=== PATIENT | male | born 1955 | race Caucasian/White ===

== ENCOUNTER 2021-12-18 13:53 | Inpatient (IN) | payer OTHER ==
[2021-12-18] VITALS (17 sets, daily range): BP systolic 75–135; BP diastolic 49–82
[~2021-12-18] VITALS: Ht 182.9 cm; Wt 84.4 kg
--- NOTE | ~2021-12-18 | EMS ---
[address] [address] EMS Patient Care Report Name: JOHN TEIXEIRA Room #: 247-P ADM IN M.R.#: [id number] Admission: 12/18/21 Attend Phys: Ra Garcia MD Discharge: Date of : 53 Report #: [id number] THIS REPORT FOR: //name// Report Transmitted: 12/18/2021 21:03 EMS Care Summary [facility] MED-ACT Incident [id number] @ 12/18/2021 13:19 Incident Location [address] [place] [address] Patient JOHN TEIXEIRA Male, 66 Years 1955 Patient Address [address] [place] [address] Patient History Pneumonia,Respiratory Failure,Coronary Artery Disease (CAD),Myocardial Infarction (MD),Novel Coronavirus (COVID-19), Patient Allergies No known allergies, Patient Medications Metoprolol, Enoxaparin, Lorazepam, Albuterol, Chief Complaint respiratory distress Disposition Transported No Lights/[place] Dispatch Reason Breathing Problem Transported To [facility] Narrative Dispatched to a rehab hospital for a male pt reported to be having shortness of breath. EMS arrived to find the pt alert, in a semi-fowlers position in bed, [address] [address] EMS Patient Care Report Name: JOHN TEIXEIRA Room #: 247-P ADM IN Art.#: [id number] Admission: 12/18/21 Attend Phys: Ra Garcia MD Discharge: Date of : 53 Report #: [id number] with biPap in place. Staff reports that the pt has been "maxed out" on everything they can do for him oxygen and ventilation goodrich since he arrived about a month prior. They report that he has been having difficulty the whole time but that he has continued to worsen at a steady rate. They report that he has been "de-satting" quickly and that he is getting too sick for them to care for at the moment. Staff requests that EMS "RSI and intubate" the pt then take him to [facility]. EMS explained that while we can intubate, we do not have RSI protocols within our department. EMS also informed them that the pts status and severity of illness prevented us from being able to transport him to the [facility] hospital which is a 22+ mile drive away when there are several other, significantly closer ER's that would be appropriate for stabilizing him. Pt and staff then agreed to the nearest ER, [place]. Pt reports that he wants to be sedated and intubated, though says he has never been intubated before. He says that he would like to stay on the ventilator for up to 30 days, and that he would like to be transferred to [place] if possible once stabilized. Pt is found lifted from the bed to the cot before being placed on CPAP with an O2 trio at 90% fiO2. Pt is secured and moved to the ambulance for transport to [facility]. Pt remains alert, though lethargic, reporting shortness of breath while en route. He does report that the CPAP is helping him breath a little easier during transport. Pt is lifted from the cot to the ER bed in room #6. Care is transferred to waiting RN and MD staff. Initial Vitals @13:44P: 127,SpO2: 67, @13:36P: 119,SpO2: 94, @13:31P: 116,SpO2: 87, @13:40P: 123,BP: 142/90,SpO2: 91, @13:47P: 101,R: 44,EtCO2: 23,SpO2: 85, @13:49P: 94,R: 41,BP: 115/69,EtCO2: 23,SpO2: 85, @13:36P: 97,R: 32,SpO2: 91,MD Suspected: false @PTAP: 116,R: 32,BP: 132/77,Pain: 0/10,GCS: 15,Temp: 97.8F,SpO2: 87,Revised Trauma: 11, @13:51P: 116,R: 41,GCS: 15,EtCO2: 21,SpO2: 88, Impression Respiratory Failure Procedures @13:40 CPAP Response: UnchangedSucceeded @PTAIV Therapy - Saline Lock cc (20 ga) Site: Forearm-Left Response: UnchangedSucceeded @13:32 ALS Assessment Response: UnchangedSucceeded @PTAOxygen FlowRate: 15 Device: Non Re-breather Mask (NRB) Response: [facility] [address] [place] [address] EMS Patient Care Report Name: JOHN TEIXEIRA Room #: 247-P ADM IN M.R.#: [id number] Admission: 12/18/21 Attend Phys: Ra Garcia MD Discharge: Date of : 53 Report #: [id number] UnchangedSucceeded @13:31 12-Lead ECG Response: UnchangedSucceeded @13:36 12-Lead ECG Response: UnchangedSucceeded Timeline CEMENT PAVER,IV Therapy - Saline Lock cc 20 ga Site: Forearm-Left,Response: UnchangedSucceeded, CEMENT PAVER,Oxygen FlowRate: 15 Device: Non Re-breather Mask (NRB) Response: UnchangedSucceeded, CEMENT PAVER,BP: 132/77 M,PULSE: 116,RR: 32 R,SPO2: 87 Ox,ETCO2: ,BG: ,PAIN: 0,GCS: 15, 13:18,Call Received 13:18,Psap Call 13:19,Dispatched 13:20,En Route 13:27,On Scene 13:30,At Patient 13:31,12-Lead ECG,Response: UnchangedSucceeded, 13:31,BP: / M,PULSE: 116,RR: R,SPO2: 87 Ox,ETCO2: ,BG: ,PAIN: ,GCS: , 13:32,ALS Assessment,Response: UnchangedSucceeded, 13:36,BP: / M,PULSE: 119,RR: R,SPO2: 94 Ox,ETCO2: ,BG: ,PAIN: ,GCS: , 13:36,12-Lead ECG,Response: UnchangedSucceeded, 13:36,BP: / M,PULSE: 97,RR: 32 R,SPO2: 91 Ox,ETCO2: ,BG: ,PAIN: ,GCS: , 13:40,CPAP Response: UnchangedSucceeded, 13:40,BP: 142/90 M,PULSE: 123,RR: R,SPO2: 91 Ox,ETCO2: ,BG: ,PAIN: ,GCS: , 13:44,BP: / M,PULSE: 127,RR: R,SPO2: 67 Ox,ETCO2: ,BG: ,PAIN: ,GCS: , 13:44,Depart Scene 13:47,BP: / M,PULSE: 101,RR: 44 R,SPO2: 85 Ox,ETCO2: 23 ,BG: ,PAIN: ,GCS: , 13:49,BP: 115/69 M,PULSE: 94,RR: 41 R,SPO2: 85 Ox,ETCO2: 23 ,BG: ,PAIN: ,GCS: , 13:51,BP: / M,PULSE: 116,RR: 41 R,SPO2: 88 Ox,ETCO2: 21 ,BG: ,PAIN: ,GCS: 15, 13:51,At Destination 14:27,Call Closed Disclaimer v1.1 Copyright 2021 [employer] This EMS Care Summary contains data elements from the applicable legal record (which may be displayed differently). It is designed to provide pertinent information for the following purposes: continuity of care, clinical quality, and state data reporting. The complete legal record is available to ED staff and administrators of the receiving hospital in [facility]'s Patient Tracker. All data is provided "as is."
--- NOTE | ~2021-12-18 | EMS ---
[address] [address] EMS Patient Care Report Name: JOHN TEIXEIRA Room #: 247-P ADM IN M.R.#: [id number] Admission: 12/18/21 Attend Phys: Ra Garcia MD Discharge: Date of : 53 Report #: [id number] THIS REPORT FOR: //name// Report Transmitted: 12/18/2021 22:04 EMS Care Summary [facility] MED-ACT Incident [id number] @ 12/18/2021 13:19 Incident Location [address] [place] [address] Patient JOHN TEIXEIRA Male, 66 Years 1955 Patient Address [address] [place] [address] Patient History Pneumonia,Respiratory Failure,Coronary Artery Disease (CAD),Myocardial Infarction ([place]),Novel Coronavirus (COVID-19), Patient Allergies No known allergies, Patient Medications Metoprolol, Enoxaparin, Lorazepam, Albuterol, Chief Complaint respiratory distress Disposition Transported No Lights/[place] Dispatch Reason Breathing Problem Transported To [facility] Narrative Dispatched to a rehab hospital for a male pt reported to be having shortness of breath. EMS arrived to find the pt alert, in a semi-fowlers position in bed, [address] [address] EMS Patient Care Report Name: JOHN TEIXEIRA Room #: 247-P ADM IN Art.#: [id number] Admission: 12/18/21 Attend Phys: Ra Garcia MD Discharge: Date of : 53 Report #: [id number] with biPap in place. Staff reports that the pt has been "maxed out" on everything they can do for him oxygen and ventilation goodrich since he arrived about a month prior. They report that he has been having difficulty the whole time but that he has continued to worsen at a steady rate. They report that he has been "de-satting" quickly and that he is getting too sick for them to care for at the moment. Staff requests that EMS "RSI and intubate" the pt then take him to [facility]. EMS explained that while we can intubate, we do not have RSI protocols within our department. EMS also informed them that the pts status and severity of illness prevented us from being able to transport him to the [facility] hospital which is a 22+ mile drive away when there are several other, significantly closer ER's that would be appropriate for stabilizing him. Pt and staff then agreed to the nearest ER, [place]. Pt reports that he wants to be sedated and intubated, though says he has never been intubated before. He says that he would like to stay on the ventilator for up to 30 days, and that he would like to be transferred to [place] if possible once stabilized. Pt is found lifted from the bed to the cot before being placed on CPAP with an O2 trio at 90% fiO2. Pt is secured and moved to the ambulance for transport to [facility]. Pt remains alert, though lethargic, reporting shortness of breath while en route. He does report that the CPAP is helping him breath a little easier during transport. Pt is lifted from the cot to the ER bed in room #6. Care is transferred to waiting RN and MD staff. Initial Vitals @13:44P: 127,SpO2: 67, @13:36P: 119,SpO2: 94, @13:31P: 116,SpO2: 87, @13:40P: 123,BP: 142/90,SpO2: 91, @13:47P: 101,R: 44,EtCO2: 23,SpO2: 85, @13:49P: 94,R: 41,BP: 115/69,EtCO2: 23,SpO2: 85, @13:36P: 97,R: 32,SpO2: 91,[place] Suspected: false @PTAP: 116,R: 32,BP: 132/77,Pain: 0/10,GCS: 15,Temp: 97.8F,SpO2: 87,Revised Trauma: 11, @13:51P: 116,R: 41,GCS: 15,EtCO2: 21,SpO2: 88, Impression Respiratory Failure Procedures @13:40 CPAP Response: UnchangedSucceeded @PTAIV Therapy - Saline Lock cc (20 ga) Site: Forearm-Left Response: UnchangedSucceeded @13:32 ALS Assessment Response: UnchangedSucceeded @PTAOxygen FlowRate: 15 Device: Non Re-breather Mask (NRB) Response: [facility] [address] [place] [address] EMS Patient Care Report Name: JOHN TEIXEIRA Room #: 247-P ADM IN M.R.#: [id number] Admission: 12/18/21 Attend Phys: Ra Garcia MD Discharge: Date of : 53 Report #: [id number] UnchangedSucceeded @13:31 12-Lead ECG Response: UnchangedSucceeded @13:36 12-Lead ECG Response: UnchangedSucceeded Timeline ASSOCIATE PROFESSOR OF CHEMISTRY,IV Therapy - Saline Lock cc 20 ga Site: Forearm-Left,Response: UnchangedSucceeded, ASSOCIATE PROFESSOR OF CHEMISTRY,Oxygen FlowRate: 15 Device: Non Re-breather Mask (NRB) Response: UnchangedSucceeded, ASSOCIATE PROFESSOR OF CHEMISTRY,BP: 132/77 M,PULSE: 116,RR: 32 R,SPO2: 87 Ox,ETCO2: ,BG: ,PAIN: 0,GCS: 15, 13:18,Call Received 13:18,Psap Call 13:19,Dispatched 13:20,En Route 13:27,On Scene 13:30,At Patient 13:31,12-Lead ECG,Response: UnchangedSucceeded, 13:31,BP: / M,PULSE: 116,RR: R,SPO2: 87 Ox,ETCO2: ,BG: ,PAIN: ,GCS: , 13:32,ALS Assessment,Response: UnchangedSucceeded, 13:36,BP: / M,PULSE: 119,RR: R,SPO2: 94 Ox,ETCO2: ,BG: ,PAIN: ,GCS: , 13:36,12-Lead ECG,Response: UnchangedSucceeded, 13:36,BP: / M,PULSE: 97,RR: 32 R,SPO2: 91 Ox,ETCO2: ,BG: ,PAIN: ,GCS: , 13:40,CPAP Response: UnchangedSucceeded, 13:40,BP: 142/90 M,PULSE: 123,RR: R,SPO2: 91 Ox,ETCO2: ,BG: ,PAIN: ,GCS: , 13:44,BP: / M,PULSE: 127,RR: R,SPO2: 67 Ox,ETCO2: ,BG: ,PAIN: ,GCS: , 13:44,Depart Scene 13:47,BP: / M,PULSE: 101,RR: 44 R,SPO2: 85 Ox,ETCO2: 23 ,BG: ,PAIN: ,GCS: , 13:49,BP: 115/69 M,PULSE: 94,RR: 41 R,SPO2: 85 Ox,ETCO2: 23 ,BG: ,PAIN: ,GCS: , 13:51,BP: / M,PULSE: 116,RR: 41 R,SPO2: 88 Ox,ETCO2: 21 ,BG: ,PAIN: ,GCS: 15, 13:51,At Destination 14:27,Call Closed Disclaimer v1.1 Copyright 2021 [employer] This EMS Care Summary contains data elements from the applicable legal record (which may be displayed differently). It is designed to provide pertinent information for the following purposes: continuity of care, clinical quality, and state data reporting. The complete legal record is available to ED staff and administrators of the receiving hospital in [facility]'s Patient Tracker. All data is provided "as is."
[2021-12-18 14:14] LABS: HEMATOCRIT 39.9 % (42.0-52.0); HEMOGLOBIN 13.3 gm/dL (14.0-18.0); MCHC 33.2 g/dL (28.0-37.0); MCV 90.2 fL (80.0-100.0); PLATELET COUNT 366 thou/uL (150-400); RBC 4.43 mil/uL (4.50-6.00); WBC 10.6 thou/uL (4.0-11.0)
[2021-12-18 14:30] LABS: CALCIUM 8.7 mg/dL (8.5-10.1); CREATININE 0.6 mg/dL (0.7-1.3); POTASSIUM 4.3 mmol/L (3.5-5.1)
[2021-12-18 14:32] LABS: URINE BILIRUBIN NEGATIVE (Negative); URINE BLOOD TRACE (Negative); URINE CLARITY CLOUDY; URINE COLOR YELLOW; URINE GLUCOSE-RANDOM* NEGATIVE (Negative); URINE KETONES 1+ (Negative); URINE LEUKOCYTES-REFLEX NEGATIVE (Negative); URINE NITRITE-REFLEX NEGATIVE (Negative); URINE PROTEIN (DIPSTICK) TRACE (Negative); URINE SPECIFIC GRAVITY 1.025 (1.005-1.035); URINE UROBILINOGEN 0.2 E.U./dl (0.2-1.0)
[2021-12-18 14:40] LABS: ALBUMIN 2.3 g/dL (3.4-5.0); TOTAL BILIRUBIN 0.6 mg/dL (0.2-1.0); TOTAL PROTEIN 6.5 g/dL (6.4-8.2)
[2021-12-18 14:48] LABS: BE(vivo) -2.1 mmol/L (-2 to +3); PCO2 58.7 mmHg (35.0-45.0); PO2 77.2 mmHg (80.0-100.0); pH 7.264 (7.360-7.450); sO2 93.3 % (92.0-98.0)
[2021-12-18 15:02] LABS: ABSOLUTE NEUTROPHILS 8.7 thou/uL (1.4-8.2); PLATELET ESTIMATE NORMAL
--- NOTE | 2021-12-18 16:10 | EKG ---
[place] [address] [address] [facility] [place] [address] ELECTROCARDIOGRAM REPORT Name: JOHN TEIXEIRA [id number] Admission: 12/18/21 Attend Phys: Discharge: Date of : 53 Report #: [id number] [facility] ED Test Date: 2021-12-18 Test Time: 14:04:05 Pat Name: JOHN TEIXEIRA Department: Room: Gender: M Research Group Director: SOHAIL : 1955 Requested By: Christ Hermosillo Order Number: [id number] MD: Huy Buchanan Measurements Intervals [place] Rate: 117 P: 19 GA: 155 QRS: -15 QRSD: 89 T: 57 QT: 289 QTc: 403 Interpretive Statements Sinus tachycardia Borderline left axis deviation Abnormal R-wave progression, early transition Borderline T abnormalities, anterior leads No previous ECG available for comparison Electronically Signed On 12-18-2021 16:10:27 FRANCHISE SALES REPRESENTATIVE by Huy Buchanan [email or web address] <ELECTRONICALLY SIGNED> By: Huy Buchanan MD, [facility] 12/18/21 1610 1404 1404 Huy Buchanan MD, FACC /EPI
[2021-12-18 17:29] LABS: BE(vivo) -7.6 mmol/L (-2 to +3); HCO3 22.3 mmol/L (22.0-26.0); PO2 96.1 mmHg (80.0-100.0); sO2 94.8 % (92.0-98.0)
[2021-12-18 17:31] LABS: PCO2 67.6 mmHg (35.0-45.0); pH 7.137 (7.360-7.450)
[2021-12-18 17:32] LABS: APTT 31.9 Seconds (24.5-32.8); INR 1.05; PROTIME 11.4 Seconds (10.5-12.1)
[2021-12-18 21:49] LABS: CALCIUM 7.8 mg/dL (8.5-10.1); CREATININE 0.8 mg/dL (0.7-1.3); POTASSIUM 3.9 mmol/L (3.5-5.1)
[2021-12-19] VITALS (128 sets, daily range): BP systolic 63–149; BP diastolic 32–95
[2021-12-19 05:07] LABS: HEMATOCRIT 35.7 % (42.0-52.0); MCH 28.8 pg (26.0-34.0); MCHC 31.4 g/dL (28.0-37.0); MCV 91.7 fL (80.0-100.0); PLATELET COUNT 423 thou/uL (150-400); RBC 3.89 mil/uL (4.50-6.00); WBC 17.1 thou/uL (4.0-11.0)
[2021-12-19 05:14] LABS: HEMOGLOBIN 11.2 gm/dL (14.0-18.0)
[2021-12-19 05:18] LABS: ALBUMIN 1.9 g/dL (3.4-5.0); CALCIUM 7.2 mg/dL (8.5-10.1); CREATININE 1.2 mg/dL (0.7-1.3); POTASSIUM 4.2 mmol/L (3.5-5.1); TOTAL PROTEIN 5.5 g/dL (6.4-8.2)
[2021-12-19 05:26] LABS: BE(vivo) -8.7 mmol/L (-2 to +3); HCO3 20.8 mmol/L (22.0-26.0); PCO2 61.4 mmHg (35.0-45.0); PO2 90.5 mmHg (80.0-100.0); sO2 94.2 % (92.0-98.0)
[2021-12-19 05:27] LABS: pH 7.148 (7.360-7.450)
[2021-12-19 10:41] LABS: ABSOLUTE NEUTROPHILS 14.7 thou/uL (1.4-8.2); ANISOCYTOSIS SLIGHT; METAMYELOCYTES 1 %; MYELOCYTES 1 %
[2021-12-19 18:02] LABS: CALCIUM 7.8 mg/dL (8.5-10.1); POTASSIUM 4.4 mmol/L (3.5-5.1)
[2021-12-20] VITALS (84 sets, daily range): BP systolic 74–107; BP diastolic 39–71
[2021-12-20 05:24] LABS: CALCIUM 7.2 mg/dL (8.5-10.1); CREATININE 2.9 mg/dL (0.7-1.3); POTASSIUM 4.8 mmol/L (3.5-5.1)
[2021-12-20 05:35] LABS: HEMOGLOBIN 10.4 gm/dL (14.0-18.0); MCH 29.2 pg (26.0-34.0); MCHC 31.5 g/dL (28.0-37.0); MCV 92.8 fL (80.0-100.0); PLATELET COUNT 393 thou/uL (150-400); RBC 3.56 mil/uL (4.50-6.00); RDW 14.5 % (10.5-14.5); WBC 14.8 thou/uL (4.0-11.0)
[2021-12-20 06:25] LABS: ABSOLUTE NEUTROPHILS 12.1 thou/uL (1.4-8.2)
[2021-12-20 06:26] LABS: ANISOCYTOSIS 1+; LARGE PLATELETS FEW; PLATELET ESTIMATE NORMAL; POIKILOCYTOSIS 1+
--- NOTE | 2021-12-20 09:14 | 2DMMODE ---
[facility] [place] [address] 2 D/M-MODE ECHOCARDIOGRAM Name: JOHN TEIXEIRA Room #: 247-P ADM IN M.R.#: [id number] Admission: 12/18/21 Attend Phys: Ra Garcia MD Discharge: Date of : 53 Report #: [id number] THIS REPORT FOR: cc: Alisha Christina MD, Martha M. MD Santiago, Patrick MD [facility] ~ APPROVED REPORT Study performed: 12/20/2021 08:26:08 EXAM: Comprehensive 2D, Doppler, and color-flow Echocardiogram Patient Location: ICU Room #: [facility] Status: routine BSA: 1.95 HR: 118 bpm BP: 93/56 mmHg Rhythm: Tachycardia Other Information Study Quality: Adequate Technically limited study due to ICU on ventilator. Indications Short of breath, hypoxia, septic shock Hx: COVID 2D Dimensions RVDd: 48.02 mm IVSd: 8.59 (7-11mm) LVOT Diam: 20.94 (18-24mm) LVDd: 44.69 mm PWd: 7.36 (7-11mm) LVDs: 36.11 (25-40mm) Left Atrium: 35.43 (27-40mm) Aortic Root: 34.21 mm Volumes Left Atrial Volume (Systole) Single Plane 4CH: 36.88 mL Single Plane 2CH: 54.57 mL LA ESV Index: 24.00 mL/m2 Aortic Valve AoV Peak Froilan.: 1.37 m/s [facility] [address] [place] [address] 2 D/M-MODE ECHOCARDIOGRAM Name: JOHN TEIXEIRA Room #: 247-P [facility] IN M.R.#: [id number] Admission: 12/18/21 Attend Phys: Ra Garcia MD Discharge: Date of : 53 Report #: [id number] AO Peak Gr.: 7.56 mmHg LVOT Max P.52 mmHg LVOT Max V: 1.28 m/s YAKAOV Vmax: 3.19 cm2 Mitral Valve E/A Ratio: 0.8 MV Decel. Time: 125.46 ms MV E Max Froilan.: 0.48 m/s MV A Froilan.: 0.62 m/s MV PHT: 36.38 ms IVRT: 62.28 ms Pulmonary Valve PV Peak Froilan.: 0.82 m/s PV Peak Gr.: 2.71 mmHg Tricuspid Valve TR Peak Froilan.: 3.35 m/s RAP Estimate: 10.00 mmHg TR Peak Gr.: 45.00 mmHg PA Pressure: 55.00 mmHg Left Ventricle The left ventricle is normal size. Questionable regional wall motion abnormalities. There is normal left ventricular wall thickness. Left ventricular systolic function is mildly decreased. LVEF is 45%. Mild diastolic dysfunction is present (impaired relaxation pattern). Right Ventricle Right ventricle is dilated. Right ventricle is hypokinetic. Atria The left atrium size is normal. Right atrium is dilated. Aortic Valve The aortic valve is normal in structure. No aortic regurgitation is present. There is no aortic valvular stenosis. Mitral Valve The mitral valve is normal in structure. There is no mitral valve regurgitation noted. No evidence of mitral valve stenosis. Tricuspid Valve The tricuspid valve is normal in structure. Moderate tricuspid regurgitation. Estimated PAP is 55mmHg. [facility] [address] [place] [address] 2 D/M-MODE ECHOCARDIOGRAM Name: JOHN TEIXEIRA Room #: [facility]- ADM IN M.R.#: [id number] Admission: 12/18/21 Attend Phys: Ra Garcia MD Discharge: Date of : 53 Report #: [id number] Pulmonic Valve Pulmonic valve is not well visualized. Trace pulmonic regurgitation. Great Vessels The aortic root is normal in size. Ascending aorta is not well visualized. IVC is normal in size and collapses <50% with inspiration. Pericardium There is no pericardial effusion. <Conclusion> Normal left ventricle size/wall thickness Ejection fraction 45 5-50% Moderate inferobasilar hypokinesis Right ventricle mildly dilated/hypokinetic Right atrium mildly dilated Normal aortic/mitral valve structure and function Moderate tricuspid valve insufficiency Pulmonary systolic pressure estimated 55 mmHg No pericardial effusion Normal aortic root size. Dilated IVC minimally responsive to respiration <ELECTRONICALLY SIGNED> By: Huy Buchanan MD, FACC 12/20/21913 3 3 Huy Buchanan MD, [facility] /INF
[2021-12-20] MEDS ORDERED: LOW DOSE ASPIRI81 M1 PO (11:27)
[2021-12-20] MEDS ORDERED: CRESTOR5 MG PO (11:35)
[2021-12-20] MEDS ORDERED: TOPROL XL25 MG PO (11:35)
[2021-12-20 13:41] LABS: BE(vivo) -15.3 mmol/L (-2 to +3); HCO3 17.1 mmol/L (22.0-26.0); PO2 97.4 mmHg (80.0-100.0); sO2 92.2 % (92.0-98.0)
[2021-12-20 13:43] LABS: PCO2 76.2 mmHg (35.0-45.0); pH 6.968 (7.360-7.450)
[2021-12-20 19:09] LABS: BE(vivo) -12.7 mmol/L (-2 to +3); HCO3 19.2 mmol/L (22.0-26.0); PCO2 78.6 mmHg (35.0-45.0); PO2 100.7 mmHg (80.0-100.0); pH 7.006 (7.360-7.450); sO2 93.5 % (92.0-98.0)
[2021-12-20 20:27] LABS: CALCIUM 7.1 mg/dL (8.5-10.1); CREATININE 3.6 mg/dL (0.7-1.3); POTASSIUM 4.3 mmol/L (3.5-5.1)
[2021-12-20 22:15] LABS: BE(vivo) -7.7 mmol/L (-2 to +3); HCO3 24.2 mmol/L (22.0-26.0); PO2 91.2 mmHg (80.0-100.0); sO2 92.1 % (92.0-98.0)
[2021-12-20 22:16] LABS: PCO2 90.6 mmHg (35.0-45.0); pH 7.044 (7.360-7.450)
[2021-12-21] VITALS (37 sets, daily range): BP systolic 78–163; BP diastolic 34–69
[2021-12-21 05:51] LABS: BE(vivo) -7.1 mmol/L (-2 to +3); HCO3 24.9 mmol/L (22.0-26.0)
[2021-12-21 05:53] LABS: PCO2 95.1 mmHg (35.0-45.0); PO2 45.8 mmHg (80.0-100.0); pH 7.036 (7.360-7.450)
[2021-12-21 06:53] LABS: HEMATOCRIT 31.2 % (42.0-52.0); MCH 29.2 pg (26.0-34.0); MCHC 32.1 g/dL (28.0-37.0); MCV 90.7 fL (80.0-100.0); RBC 3.44 mil/uL (4.50-6.00); RDW 14.1 % (10.5-14.5); WBC 17.7 thou/uL (4.0-11.0)
[2021-12-21 07:00] LABS: POTASSIUM 4.4 mmol/L (3.5-5.1)
[2021-12-21 11:46] LABS: HEMOGLOBIN 8.5 gm/dL (14.0-18.0); MCH 29.2 pg (26.0-34.0); MCHC 30.5 g/dL (28.0-37.0); MCV 95.5 fL (80.0-100.0); RBC 2.93 mil/uL (4.50-6.00); RDW 14.8 % (10.5-14.5); WBC 18.8 thou/uL (4.0-11.0)
[2021-12-21 12:32] LABS: CREATININE 4.4 mg/dL (0.7-1.3); MAGNESIUM 2.1 mg/dL (1.8-2.4)
[2021-12-21 12:35] LABS: POTASSIUM 6.2 mmol/L (3.5-5.1)
--- NOTE | 2021-12-21 12:48 | 2DMMODE ---
[facility] [place] [address] 2 D/M-MODE ECHOCARDIOGRAM Name: JOHN TEIXEIRA Room #: 247-P ADM IN M.R.#: [id number] Admission: 12/18/21 Attend Phys: Ra Garcia MD Discharge: Date of : 53 Report #: [id number] THIS REPORT FOR: cc: Alisha Christina MD, Martha M. MD Park, Jin S. MD ~ APPROVED REPORT Study performed: 12/21/2021 11:43:29 EXAM: Limited 2D Echocardiogram Patient Location: ICU Room #: [facility] Status: STAT Indications STAT echo to rule out pericardial effusion during cardiac arrest and chest compressions. Pericardium There is no pericardial effusion. <Conclusion> Limited study during emergency conditions to rule out pericardial effusion. There is no pericardial effusion. <ELECTRONICALLY SIGNED> By: Terell Dewitt MD 12/21/21 1248 1248 1248 Terell Dewitt MD /INF
== END 2021-12-21 11:45 | DRG 871 ==
LOC: ER 13:53 → ICU 16:51 → EROBS 16:51 → ICU 17:48
PROVIDERS: Emergency Medicine; Internal Medicine Pulmonary Disease; Specialist; ADMIT Internal Medicine; ATTEND Internal Medicine
DX: A41.9 Sepsis, unspecified organism (principal); J96.21 Acute and chronic respiratory failure with hypoxia; J69.0 Pneumonitis due to inhalation of food and vomit; N17.0 Acute kidney failure with tubular necrosis; G92.9 Unspecified toxic encephalopathy; R65.21 Severe sepsis with septic shock; E43 Unspecified severe protein-calorie malnutrition; J96.22 Acute and chronic respiratory failure with hypercapnia; E87.1 Hypo-osmolality and hyponatremia; D68.59 Other primary thrombophilia; R73.9 Hyperglycemia, unspecified; J84.10 Pulmonary fibrosis, unspecified; I10 Essential (primary) hypertension; U09.9 Post COVID-19 condition, unspecified; Z20.822 Contact with and (suspected) exposure to COVID-19; Z87.01 Personal history of pneumonia (recurrent); Z68.25 Body mass index [BMI] 25.0-25.9, adult; T36.8X5A Adverse effect of other systemic antibiotics, initial encounter
CPT/HCPCS: 10078